=== PATIENT | male | born 1975 | race Caucasian/White ===

== ENCOUNTER → 2016-05-18 | Outpatient (CLI) | payer OTHER ==
--- NOTE | 2016-05-18 11:54 | DX ---
PA and Lateral Chest X-ray 1120 hours History: Dyspnea for about 6 month at rest.. Findings: Heart size and pulmonary vasculature are normal. The lungs are clear without infiltrates or effusions. There is calcified granuloma left upper lobe anteromedially and right perihilar region. C alcified right hilar nodes are suspected. There is no pneumothorax. The osseous structures are intact . Impression: 1. No active cardiopulmonary disease seen. 2. Calcified granulomas left upper lobe and right perihilar region
== END ==
LOC: BMCIMAGING 11:16
PROVIDERS: ATTEND Internal Medicine
DX: J98.4 Other disorders of lung (principal)